=== PATIENT | male | born 1970 | race Caucasian/White ===

== ENCOUNTER → 2016-05-30 | Outpatient (CLI) | payer BC ==
[2016-05-30 09:34] LABS: HEMOGLOBIN 13.9 gm/dl (14.0-17.5); RED BLOOD COUNT 4.72 M/UL (4.20-5.50); WHITE BLOOD COUNT 3.7 K/UL (4.5-11.0)
== END ==
LOC: LAB 08:32
PROVIDERS: Nurse Practitioner
DX: E29.1 Testicular hypofunction (principal); N52.8 Other male erectile dysfunction; R53.83 Other fatigue
CPT/HCPCS: 36415; 80053; 80061; 83001; 83002; 84270; 85027; 93005